=== PATIENT | male | born 1960 | race Caucasian/White ===

== ENCOUNTER 2023-11-09 10:54 | Day surgery (SDC) | payer BC ==
[2023-11-08 14:57] VITALS: BMI 36.0
[~2023-11-09 10:54] MED LIST: EPINEPHrine 0.3 MG in Ophthalmic Irrigation Solution 500 ML IRR SCH
[2023-11-09] MEDS ORDERED: Cyclopentolate W/ Phenylephrin 40 DROP/2 ML BOT ONE (11:49)
[2023-11-09] MEDS ORDERED: Midazolam HCl 2 mg/2 ml Vial ONE (12:08)
[2023-11-09] MEDS ORDERED: Bupivacaine 0.75% 10 ML VIAL ONE (12:34)
[2023-11-09] MEDS ORDERED: PROPOFOL 200 MG/20 ML VIAL ONE (12:34)
[2023-11-09] MEDS ORDERED: Triamcinolone 40 MG/ML VIAL ONE (12:34)
[2023-11-09] MEDS ORDERED: CEFAZOLIN 1 GM VIAL ONE (12:34)
[2023-11-09] MEDS ORDERED: Lidocaine 1% PF 5 ML VIAL ONE (12:34)
[2023-11-09] MEDS ORDERED: Lidocaine 4% PF 5 ML AMP ONE (12:34)
[2023-11-09] MEDS ORDERED: Maxitrol 0.1% Opth Oint 3.5 GM TUBE ONE (12:34)
== END 2023-11-09 13:46 | disposition home or self-care (01) ==
LOC: SDC 10:54
PROVIDERS: ATTEND Ophthalmology Retina Specialist
PROC: 08T43ZZ Resection of Right Vitreous, Percutaneous Approach (ICD-10-PCS; principal; 2023-11-09)
DX: H33.001 Unspecified retinal detachment with retinal break, right eye (principal)
CPT/HCPCS: 67025; J0171; J0690; J2250; J2704; J3301; J3490